=== PATIENT | male | born 1980 | race Caucasian/White ===

== ENCOUNTER 2018-11-19 19:06 | Emergency (ER) | payer BC, OTHER ==
--- NOTE | 2018-11-19 19:28 | PDOC ---
Rapid Medical Evaluation Chief Complaint: Chest Pain Medical Evaluation: 11/19/18 19:22 I have performed a brief in-person evaluation of this patient. The patient presents with a chief complaint of: anxious/ chest pounding / tightness/ denies history of anxiety Hx C3, C4 herniation with steroids - 5 days dose pack Pertinent physical exam findings: talkative/ some air hunger./ I have ordered the following: EKG The patient will proceed to the ED for further evaluation. 11/19/18 19:29 Discharge Disposition - Diagnosis Chest pain - Referrals - Patient Instructions - Post Discharge Activity
[2018-11-19 19:29] VITALS: BP 134/81; PULSE 90; TEMP 98.3; BMI 27.0
[2018-11-19 20:02] LABS: BASO % 0.2 % (0-2.0); HEMATOCRIT 43.1 % (35.4-49); HEMOGLOBIN 15.1 GM/dL (11.7-16.9); LYMPH % 10.8 % (8-40); MCH 31.5 pg (25.7-33.7); MCHC 35.1 g/dl (32.0-35.9); MEAN CELL VOLUME 89.7 fl (80-96); MEAN PLT VOLUME 9.2 fl (7.5-11.1); MONO % 4.6 % (3.8-10.2); NEUT % 84.4 % (42.8-82.8); PLATELET COUNT 246 K/MM3 (134-434); RBC 4.81 M/mm3 (4.00-5.60); RDW 12.3 % (11.9-15.9); WHITE BLOOD COUNT 8.7 K/mm3 (4.0-10.0)
--- NOTE | 2018-11-19 20:06 | PDOC ---
History of Present Illness - General Chief Complaint: Chest Pain Stated Complaint: CHEST PAIN - History of Present Illness Initial Comments: The pt is a 38M w/ a history of C3-C4 slipped disc who presents for evaluation of palpitations, chest discomfort, and feelings of anxiety since 1200 today. He reports having this sensation for several weeks intermittently. He also reports having discomfort/tightness into his neck that is sometimes independent of his other symptoms. He endorses associated intermittent lightheadedness. Denies HUERTA, N/V/C/D, fevers, changes in sensation/strength, LOC, dysuria, hematuria. He takes aleive for his neck pain. PMH: Denies PSH: Denies Allergies: Denies SH: Denies tobacco, social EtOH, denies drug use PCP: N/A 11/19/18 20:32 Past History - Past Medical History Allergies/Adverse Reactions: Allergies Allergy/AdvReac Type Severity Reaction Status Date / Time No Known Allergies Allergy Verified 11/19/18 19:29 Home Medications: Ambulatory Orders NK [No Known Home Medication] 11/19/18 COPD: No - Suicide/Smoking/Psychosocial Hx Smoking History: Never smoked Have you smoked in the past 12 months: No Information on smoking cessation initiated: No Hx Alcohol Use: No Drug/Substance Use Hx: No Review of Systems - Review of Systems Able to Perform ROS?: Yes Comments:: GENERAL/CONSTITUTIONAL: No fever or chills. No weakness HEAD, EYES, EARS, NOSE AND THROAT: No change in vision. No ear pain or discharge. No sore throat CARDIOVASCULAR: No chest pain or shortness of breath RESPIRATORY: Denies cough, hemoptysis GASTROINTESTINAL: No nausea, vomiting, diarrhea or constipation GENITOURINARY: No dysuria, frequency, or change in urination MUSCULOSKELETAL: No joint or muscle swelling or pain. No neck or back pain SKIN: No rash NEUROLOGIC: No headache, vertigo, loss of consciousness, or change in strength/ sensation ENDOCRINE: No increased thirst. No abnormal weight change HEMATOLOGIC/LYMPHATIC: No anemia, easy bleeding, or history of blood clots ALLERGIC/IMMUNOLOGIC: No hives or skin allergy 11/19/18 20:05 Is the patient limited [place]ican proficient: No *Physical Exam - Vital Signs Last Vital Signs Temp Pulse Resp BP Pulse Ox 98.3 F 90 18 134/81 100 11/19/18 19:25 11/19/18 19:25 11/19/18 19:25 11/19/18 19:25 11/19/18 19:25 - Physical Exam Comments: GENERAL: Awake, alert, and oriented to person/place/time, in no acute distress HEAD: No signs of trauma, normocephalic, atraumatic EYES: PERRLA, EOMI, sclera anicteric, conjunctiva clear ENT: Hearing grossly normal, nares patent, oropharynx clear without exudates. No uvular deviation. Moist mucosa LUNGS: No distress, speaks full sentences, clear to auscultation bilaterally HEART: Regular rate and rhythm, normal S1 and S2, no murmurs appreciated, peripheral pulses normal and equal bilaterally ABDOMEN: Soft, nontender, normoactive bowel sounds. No guarding, no rebound. No masses EXTREMITIES: Normal inspection, Normal range of motion, no edema. No clubbing or cyanosis NEUROLOGICAL: Cranial nerves II through XII grossly intact. Normal speech, normal gait, no focal sensorimotor deficits SKIN: Warm, Dry 11/19/18 20:06 Heart Score/ECG Review - History History: Moderately suspicious - Electrocardiogram EKG: Normal - Age Age: </= 45 - Risk Factors Based on the list above the patient has:: No risk factors known - Troponin Troponin: </= normal limit - Score Heart Score - Total: 1 ED Treatment Course - LABORATORY CBC & Chemistry Diagram: 11/19/18 19:44 11/19/18 19:44 Medical Decision Making - Medical Decision Making The pt is a 38M who presents for evaluation of palpitations with radiation to neck ED Course CMP, CBC, Trop I, TSH ECG CXR Lytes wnl No leukocytosis No anemia Trop I neg ECG w/ NSR; HR 85; no evidence of acute ischemia 11/19/18 20:38 TSH wnl 11/19/18 21:03 Pt feels improved s/p Xanax, will give Rx for short course Plan for D/C w/ PCP, Cardiology f/u Discharge instructions and return precautions given Pt in agreement and verbalized understanding Dispo: home 11/19/18 22:14 *DC/Admit/Observation/Transfer Diagnosis at time of Disposition: Palpitations, Anxiety - Discharge Dispostion Disposition: HOME Condition at time of disposition: Stable Decision to Admit order: No - Referrals Referrals: Hiren Crandall MD [Staff Physician] - Ramos Casillas MD [Staff Physician] - [facility] [place] [facility] [place] [Provider Group] Alejandro Castaneda MD [Staff Physician] - - Patient Instructions Printed Discharge Instructions: DI for Anxiety -- Adult, DI for Palpitations Additional Instructions: You were seen in the Emergency Department for evaluation palpitations with neck discomfort. Your labs, ECG, and chest x-ray was unremarkable. Review the handout provided at discharge. Follow up with your primary care provider and Cardiology (referrals provided). Return to the Emergency Department if you develop fevers/chills, chest pain, trouble breathing, dizziness, worsening symptoms, or any new/concerning symptoms. - Post Discharge Activity
[2018-11-19 20:28] LABS: ALBUMIN 4.4 g/dl (3.4-5.0); ALK PHOS 58 U/L (45-117); ANION GAP 7 MMOL/L (8-16); BILIRUBIN,TOTAL 0.7 mg/dL (0.2-1); CALCIUM 9.2 mg/dL (8.5-10.1); CHLORIDE 105 mmol/L (98-107); CO2 30 mmol/L (21-32); CREATININE 1.1 mg/dL (0.55-1.3); GLUCOSE,RANDOM 102 mg/dL (74-106); SGOT/AST 9 U/L (15-37); SGPT/ALT 23 U/L (13-61); SODIUM 141 mmol/L (136-145); TOT PROT 7.8 g/dl (6.4-8.2)
[2018-11-19] MEDS ORDERED: ALPRAZolam 0.25 MG TABLET PO ONE (21:09)
[2018-11-19] MEDS ORDERED: ALPRAZolam 0.25 MG TABLET ONE (21:20)
--- NOTE | 2018-11-19 22:21 | PDOC ---
Documentation entered by Luanne Hall SCRIBE, acting as scribe for Nitza Dumont DO. Nitza Dumont DO: This documentation has been prepared by the Rafael georges Adrianna, SCRIBE, under my direction and personally reviewed by me in its entirety. I confirm that the documentation accurately reflects all work, treatment, procedures, and medical decision making performed by me. Attending Attestation - Resident Resident Name: JanicejairoDaryn - ED Attending Attestation I have performed the following: I have examined & evaluated the patient, The case was reviewed & discussed with the resident, I agree w/resident's findings & plan - HPI HPI: The patient is a 38 year old male, with a significant PMH of C3-C4 slipped disc , who presents to the ED for evaluation of palpitations, chest discomfort, and anxiety symptoms for 8 hours. Patient notes he has intermittent palpitations and chest discomfort that radiates into his neck. He endorses associated lightheadedness. Allergies: NKA, NKDA Surgical History: None reported Social History: Denies tobacco, social EtOH, denies drug use PCP: N/A 11/19/18 21:02 - Physicial Exam PE: Agree with resident exam. 11/19/18 21:02 - Medical Decision Making 11/19/18 22:18 38-year-old male complaining of an uncomfortable feeling in his chest radiating up into his neck, Upon further questioning patient admits that he been having some difficulty sleeping He is currently out of work at home due to injury which may be causing him anxiety and stress Patient is improved on reevaluation at 10:15 PM after Xanax 0.5 mg Workup in the emergency department for possible palpitations is within normal limits Heart score is 1 He has had no chest pain Patient has ambulated in the emergency department with no active increase in symptoms He will be discharged with recommended outpatient cardiology follow-up as well as recommendations for primary care follow-up
--- NOTE | 2018-11-20 16:29 | EKG ---
Test Reason : Blood Pressure : / mmHG Vent. Rate : 085 BPM Atrial Rate : 085 BPM P-R Int : 134 ms QRS Dur : 098 ms QT Int : 358 ms P-R-T Axes : 055 057 034 degrees QTc Int : 426 ms POOR DATA QUALITY, INTERPRETATION MAY BE ADVERSELY AFFECTED NORMAL SINUS RHYTHM NORMAL ECG NO PREVIOUS ECGS AVAILABLE Confirmed by JOHN PENN MD ([id number]) on 11/20/2018 4:29:04 PM Referred By: Confirmed By:JOHN PENN MD
== END 2018-11-19 22:18 | disposition home or self-care (01) ==
LOC: JER 19:06
DX: F41.9 Anxiety disorder, unspecified (principal); R00.2 Palpitations
CPT/HCPCS: 36415; 71046-TC-FY; 80053; 82550; 84443; 84484; 85025; 93005; 93010; 99283-25